=== PATIENT | female | born 1995 | race Caucasian/White ===

== ENCOUNTER 2021-08-30 15:18 | Emergency (ER) | payer OTHER, BC ==
[2021-08-30 15:23] VITALS: TEMP 98.5
--- NOTE | 2021-08-30 15:48 | XR ---
EXAMINATION TYPE: XR chest 2V DATE OF EXAM: 08/30/2021 COMPARISON: NONE HISTORY: Cough and pain TECHNIQUE: 2 view FINDINGS: Heart and mediastinum are normal. Lungs are clear. Diaphragm is normal. Bony thorax is inta ct. IMPRESSION: Normal chest.
[2021-08-30] MEDS ORDERED: AMOXICILLIN 875 MG TAB PO STA (16:16)
--- NOTE | 2021-08-30 16:20 | ED ---
General Adult HPI - General Chief complaint: ENT Stated complaint: Ear Pain Time Seen by Provider: 08/30/21 15:29 Source: patient Mode of arrival: ambulatory Limitations: no limitations - History of Present Illness Initial comments: 26-year-old female without any significant past medical history presents to the emergency room for a chief complaint of not feeling well. Patient states that she has bilateral ear pain and pressure. States her right ear feels worse. She is congested. She also has a cough. Denies fevers. States she was exposed to COVID-19.Patient has no other complaints at this time including shortness of breath, chest pain, abdominal pain, nausea or vomiting, headache, or visual changes. - Related Data Previous Rx's Medication Instructions Recorded Amoxicillin 875 mg PO Q12HR #20 tablet 08/30/21 Fluticasone Nasal [place] [Flonase 1 spray EA NOSTRIL DAILY 7 Days 08/30/21 Nasal [place]] #16 gm Allergies Allergy/AdvReac Type Severity Reaction Status Date / Time No Known Allergies Allergy Verified 08/30/21 15:21 Review of Systems ROS Statement: Those systems with pertinent positive or pertinent negative responses have been documented in the HPI. ROS Other: All systems not noted in ROS Statement are negative. Past Medical History Past Medical History: No Reported History History of Any Multi-Drug Resistant Organisms: None Reported Past Surgical History: Cholecystectomy Past Psychological History: Anxiety, Depression, PTSD Smoking Status: Current every day smoker Past Alcohol Use History: None Reported Past Drug Use History: None Reported General Exam Limitations: no limitations General appearance: alert, in no apparent distress Head exam: Present: atraumatic Eye exam: Present: normal appearance, PERRL, EOMI. Absent: scleral icterus, conjunctival injection ENT exam: Present: normal exam, mucous membranes moist. Absent: TM's normal bilaterally (Right tympanic membrane erythematous and bulging. Left tympanic membrane is normal.) Neck exam: Present: normal inspection, full ROM. Absent: tenderness Respiratory exam: Present: normal lung sounds bilaterally. Absent: respiratory distress, wheezes Cardiovascular Exam: Present: regular rate, normal rhythm, normal heart sounds GI/Abdominal exam: Present: soft, normal bowel sounds. Absent: distended, tenderness Course Vital Signs 08/30/21 15:22 Temperature 98.5 F Pulse Rate 88 Respiratory 20 Rate Blood Pressure 145/85 O2 Sat by Pulse 100 Oximetry Medical Decision Making - Medical Decision Making Vitals are stable. Patient is well-appearing. Patient does have a right otitis media. Patient did test positive for COVID-19 chest x-ray shows a normal chest. At this time patient will be treated with amoxicillin for a right otitis media. I did offer antibody infusion to patient given she doesn't qualify as she is not vaccinated and her PMI is aware. However she declines at this time. States that she has to be getting home. Patient will follow up with her doctor and return here for any worsening symptoms. - Lab Data Lab Results 08/30/21 Range/Units 15:36 Coronavirus (PCR) Detected A (Not Detectd) Disposition Clinical Impression: Otitis media, COVID-19 Disposition: HOME SELF-CARE Condition: Good Instructions (If sedation given, give patient instructions): Coronavirus Disease 2019 (COVID-19), Ear Infection (ED) Additional Instructions: Please follow-up with your doctor in one to 2 days. Take vitamin C, D, and zinc [id number]. Take Motrin and Tylenol for fever. Return to the emergency room for any worsening symptoms. Prescriptions: Amoxicillin 875 mg PO Q12HR #20 tablet Fluticasone Nasal [place] [Flonase Nasal [place]] 1 spray EA NOSTRIL DAILY 7 Days #16 gm Is patient prescribed a controlled substance at d/c from ED?: No Referrals: Anna Mejia MD [STAFF PHYSICIAN] - 1-2 days Time of Disposition: 16:19
[2021-08-30 16:30] VITALS: BP 134/71; PULSE 68; RESP 18
== END 2021-08-30 16:45 | disposition home or self-care (01) ==
LOC: EC 15:18
DX: U07.1 COVID-19 (principal); H66.91 Otitis media, unspecified, right ear; F17.200 Nicotine dependence, unspecified, uncomplicated
CPT/HCPCS: 71046; 87635; 99283

== ENCOUNTER → 2022-06-23 | Outpatient (CLI) | payer BC, OTHER ==
--- NOTE | 2022-06-23 10:57 | US ---
EXAMINATION TYPE: US pelvis complete transvag DATE OF EXAM: 06/23/2022 COMPARISON: NONE CLINICAL HISTORY: N92.6 IRREGULAR BLEEDING. Pelvic pain for 1 year. Postcoital bleeding. No periods for 5 years due to depo provera. TECHNIQUE: . Transabdominal sonographic images of the pelvis were acquired. Transvaginal sonographi c images were medically necessary to better assess the following anatomy: Date of LMP: Unknown EXAM MEASUREMENTS: Uterus: 6.9 x 3.4 x 3.4 cm Endometrial Stripe: 0.79 cm Right Ovary: 1.4 x 1.3 x 1.3 cm Left Ovary: 2.0 x 1.3 x 1.5 cm 1. Uterus: Anteverted wnl 2. Endometrium: wnl 3. Right Ovary: wnl 4. Left Ovary: wnl 5. Bilateral Adnexa: wnl 6. Posterior cul-de-sac: wnl IMPRESSION: 1. No evidence for acute process. 2. Endometrium within normal limits for thickness.
== END | disposition home or self-care (01) ==
LOC: RADUSWWP 10:12
PROVIDERS: ATTEND Obstetrics & Gynecology
DX: N92.6 Irregular menstruation, unspecified (principal)
CPT/HCPCS: 76830; 76856